=== PATIENT | male | born 1945 | race Caucasian/White ===

== ENCOUNTER 2019-12-20 07:56 | Observation (INO) ==
[~2019-12-20 07:56] MED LIST: Buffered Lidocaine 1% SYRIN 1 ml INTRADERM ONE; Lactated Ringers 1000 ml BAG 1,000 ML IV SCH
[2019-12-20] MEDS ORDERED: ceFAZolin 2 GM PREMIX 2 GM/50 ML BAG ONE (08:12)
[2019-12-20] MEDS ORDERED: fentaNYL 100 mcg/2 ml 50 MCG/ML VIAL ONE (08:54)
[2019-12-20] MEDS ORDERED: Propofol 10 MG/ML 20 ML BTL ONE ×2 (08:54→11:04)
[2019-12-20] MEDS ORDERED: Dexamethasone IV 4 MG/ML VIAL 1 ml VIAL ONE ×2 (08:54→11:04)
[2019-12-20] MEDS ORDERED: Midazolam 2 mg/2 ml VIAL 1 mg/ml 2 ml VIAL (2 mg) ONE (08:54)
[2019-12-20] MEDS ORDERED: Phenylephrine 40 mcg/mL 10mL (400mcg) SYRINGE ONE (08:56)
[2019-12-20] MEDS ORDERED: ROPIVACAINE 5 MG/ML 30 ML BTL (0.5%) ONE (10:11)
[2019-12-20] MEDS ORDERED: DiMENhydriNATE IV 50 mg/ml 1 ml VIAL ONE (11:04)
[2019-12-20] MEDS ORDERED: fentaNYL 100 mcg/2 ml 50 MCG/ML VIAL IV PRN (11:54)
[2019-12-20] MEDS ORDERED: diPHENhydraMINE IV 50 MG/ML 1 ml VIAL (BENADRYL) IV PRN ×2 (11:54→13:13)
[2019-12-20] MEDS ORDERED: Naloxone 0.4 mg VIAL 0.4 mg/ml 1 ml VIAL IV PRN (11:54)
[2019-12-20] MEDS ORDERED: EPHEDrine (Pressors) 50 MG/ML VIAL ONE (12:02)
[2019-12-20] MEDS ORDERED: Ondansetron 4 mg VIAL 2 MG/ML 2 ml VIAL IV PRN (13:13)
[2019-12-20] MEDS ORDERED: Magnesium Hydroxide LIQ 30 ML UDC PO PRN (13:13)
[2019-12-20] MEDS ORDERED: oxyCODONE/Acetamin 5/325 mg TAB PO PRN (13:13)
[2019-12-20] MEDS ORDERED: diPHENhydraMINE 25 mg TAB PO PRN (13:13)
[2019-12-20] MEDS ORDERED: Ondansetron ODT 4 mg TAB 4 MG TAB PO PRN (13:13)
[2019-12-20] MEDS ORDERED: Lactulose 30 ml UDC PO PRN (13:13)
[2019-12-20] MEDS: Lactated Ringers 1000 ml BAG 1,000 ML IV SCH (14:24)
[2019-12-20] MEDS: oxyCODONE/Acetamin 5/325 mg TAB PO PRN ×2 (16:24→21:30)
[2019-12-20] MEDS: ceFAZolin 1 GM ADVAN 1 GM in NS 0.9% 50 ML 50 ML IVPB SCH (18:39)
[2019-12-20] MEDS: Mometasone/Formoter 100/5 MDI INH SCH (19:50)
[2019-12-20] MEDS: Magnesium Hydroxide LIQ 30 ML UDC PO SCH (21:29)
[2019-12-21] MEDS: Lactated Ringers 1000 ml BAG 1,000 ML IV SCH (00:30)
[2019-12-21] MEDS: oxyCODONE/Acetamin 5/325 mg TAB PO PRN ×2 (03:16→08:43)
[2019-12-21] MEDS: ceFAZolin 1 GM ADVAN 1 GM in NS 0.9% 50 ML 50 ML IVPB SCH ×2 (03:18→10:19)
[2019-12-21 04:57] LABS: Hematocrit 36 % (42-52); Hemoglobin 11.9 g/dL (14.0-18.0); Mean Platelet Volume 7.6 fL (7.4-10.4); Platelet Count 233 10^3/uL (150-450)
[2019-12-21 05:13] LABS: BUN/Creatinine Ratio 17.7 (8-20); Calcium 8.2 mg/dL (8.6-10.3); EGFR African American 116.7 (>60); EGFR Non-African American 96.4 (>60); Potassium 4.2 mmol/L (3.5-5.0)
[2019-12-21] MEDS: Magnesium Hydroxide LIQ 30 ML UDC PO SCH (08:44)
[2019-12-21] MEDS ORDERED: Influenza VAC *QUAD* 2020-21* 0.5 ML SYRINGE IM ONE (09:00)
[2019-12-21] MEDS ORDERED: Vitamin THERAPEUTIC TAB PO SCH (09:00)
[2019-12-21] MEDS: Mometasone/Formoter 100/5 MDI INH SCH (09:05)
[2019-12-21 15:22] VITALS: BP 99/56
== END 2019-12-21 17:00 | disposition home or self-care (01) ==
LOC: INTOOBSV 07:56 → AA 07:56 → SSU 13:13
PROVIDERS: ADMIT Orthopaedic Surgery Adult Reconstructive Orthopaedic Surgery; ATTEND Orthopaedic Surgery Adult Reconstructive Orthopaedic Surgery